=== PATIENT | male | born 1960 | race Two or more races ===

== ENCOUNTER 2018-04-01 12:11 | Inpatient (IN) | payer OTHER ==
[~2018-04-01] VITALS: Ht 175.3 cm; Wt 81.2 kg
[2018-04-01 12:22] VITALS: Ht 175.3 cm; Wt 81.2 kg
[2018-04-01 15:05] LABS: BASOPHIL % 1.7 % (0-2); PLATELET COUNT 248 x10^3mcL (130-400); RED CELL DISTRIBUTION WIDTH 13.6 % (11.5-14.5)
[2018-04-01] MEDS ORDERED: METFORMIN HCL850 MG PO (15:08)
[2018-04-01] MEDS ORDERED: NEU300 PO (15:09)
[2018-04-01] MEDS ORDERED: NOR5 PO (15:09)
[2018-04-01] MEDS ORDERED: LISINOPRIL40 MG PO (15:09)
[2018-04-01] MEDS ORDERED: HYDROCHLOROTHIA25 MG PO (15:09)
[2018-04-01] MEDS ORDERED: ASPIRIN CHILDRE81 MG PO (15:09)
[2018-04-01] MEDS ORDERED: LIPI20 PO (15:09)
[2018-04-01] MEDS ORDERED: AMITRIPTYLINE H25 M1 PO (15:10)
[2018-04-01 15:13] LABS: CALCIUM 8.2 mg/dL (8.5-10.1); CARBON DIOXIDE 24.8 mmol/L (21-32); POTASSIUM SERUM 3.9 mmol/L (3.5-5.1)
[2018-04-01 15:26] LABS: BILIRUBIN TOTAL 0.1 mg/dL (0.20-1.00); TOTAL PROTEIN, SERUM 6.7 g/dL (6.4-8.2)
[2018-04-01 15:38] LABS: ALBUMIN 2.6 g/dL (3.4-5.0)
[2018-04-01 16:03] LABS: UA SPECIFIC GRAVITY 1.015 (1.005-1.035); microscopic required? YES; urine erythrocyte TRACE (NEGATIVE)
[2018-04-01 16:31] LABS: AMPHETAMINE QUAL UR NONE DETECTED (See below)
[2018-04-01 17:36] LABS: MAGNESIUM 1.6 mg/dL (1.8-2.4); PHOSPHOROUS 4.1 mg/dL (2.5-4.9)
[2018-04-01 17:43] VITALS: BP 181/85
[2018-04-01 18:27] VITALS: BP 181/85
[2018-04-01 21:07] VITALS: BP 182/88
[2018-04-01 22:30] VITALS: BP 156/76
[2018-04-02 06:05] VITALS: BP 162/83
[2018-04-02 09:42] VITALS: BP 162/78
[2018-04-02 15:36] VITALS: BP 153/89
[2018-04-02 20:52] VITALS: BP 146/72
[2018-04-03 06:05] VITALS: BP 153/74
[2018-04-03 07:05] LABS: PLATELET COUNT 243 x10^3mcL (130-400); RED CELL DISTRIBUTION WIDTH 14.1 % (11.5-14.5)
[2018-04-03 07:09] LABS: CALCIUM 8.2 mg/dL (8.5-10.1); CARBON DIOXIDE 22.6 mmol/L (21-32); MAGNESIUM 1.9 mg/dL (1.8-2.4); PHOSPHOROUS 5.2 mg/dL (2.5-4.9); POTASSIUM SERUM 4.2 mmol/L (3.5-5.1)
[2018-04-03 08:10] VITALS: BP 172/92
[2018-04-03 10:55] VITALS: BP 172/82
[2018-04-03 15:10] VITALS: BP 147/74
[2018-04-03 21:13] VITALS: BP 187/92
[2018-04-03 22:00] VITALS: BP 165/77
[2018-04-04 05:44] VITALS: BP 151/81
[2018-04-04 06:51] LABS: PLATELET COUNT 220 x10^3mcL (130-400)
[2018-04-04 07:24] LABS: BASOPHIL % 2.2 % (0-2)
[2018-04-04 07:28] LABS: CARBON DIOXIDE 26.8 mmol/L (21-32); CREATININE SERUM 2.1 mg/dL (0.7-1.3); POTASSIUM SERUM 4.2 mmol/L (3.5-5.1)
[2018-04-04 09:54] VITALS: BP 160/79
[2018-04-04] MEDS ORDERED: CLINDAMYCIN HC300 MG PO (10:56)
[2018-04-04] MEDS ORDERED: CIPRO500 MG PO (10:56)
[2018-04-04 11:24] VITALS: BP 160/79
== END 2018-04-04 13:47 | disposition home health service (06) | DRG 305 ==
LOC: ED 12:11 → MU 15:38
PROVIDERS: Emergency Medicine; Podiatrist Foot & Ankle Surgery; ADMIT Internal Medicine
PROC: 0Y6N0ZF Detachment at Left Foot, Partial 5th Ray, Open Approach (ICD-10-PCS; principal; 2018-04-02 13:30)
DX: E11.69 Type 2 diabetes mellitus with other specified complication (principal); N17.0 Acute kidney failure with tubular necrosis; E43 Unspecified severe protein-calorie malnutrition; M84.675A Pathological fracture in other disease, left foot, initial encounter for fracture; E11.22 Type 2 diabetes mellitus with diabetic chronic kidney disease; E83.42 Hypomagnesemia; E11.65 Type 2 diabetes mellitus with hyperglycemia; E11.621 Type 2 diabetes mellitus with foot ulcer; E11.42 Type 2 diabetes mellitus with diabetic polyneuropathy; M86.8X8 Other osteomyelitis, other site; L97.426 Non-pressure chronic ulcer of left heel and midfoot with bone involvement without evidence of necrosis; E87.1 Hypo-osmolality and hyponatremia; N18.4 Chronic kidney disease, stage 4 (severe); I12.9 Hypertensive chronic kidney disease with stage 1 through stage 4 chronic kidney disease, or unspecified chronic kidney disease; E78.00 Pure hypercholesterolemia, unspecified; E11.51 Type 2 diabetes mellitus with diabetic peripheral angiopathy without gangrene; E78.5 Hyperlipidemia, unspecified; I87.8 Other specified disorders of veins; L03.032 Cellulitis of left toe; Z68.25 Body mass index [BMI] 25.0-25.9, adult; Z79.84 Long term (current) use of oral hypoglycemic drugs
CPT/HCPCS: 82962; 83880; 90715; 97116-GP; J0295; J0360; J1815; J2250; J2543; J3010; J3490; J7030; Q0092